=== PATIENT | male | born 1940 | race Hispanic/Latino ===

== ENCOUNTER 2017-04-12 20:45 | Inpatient (IN) | payer MEDICARE, OTHER ==
--- NOTE | 2017-04-12 21:29 | C.PDOC ---
History Of Present Illness 76 year old male presents to the ED with complaints of a sinus infection with thick nasal drip. Patient states he was seen by doctor yesterday and began amoxicillin treatment upon taking the medication began to feel palpitations today. He notes a history of atrial fibrillation but is well controlled, Gilbert 's Disease, and has noticed swelling in both legs. He had elevated blood pressure which he took his blood pressure medication but with no relief. Patient denies taking any over the counter sinus of cold medications except for Tylenol, denies any shortness of breath, vomiting, or any other complaints at this time. Time Seen by Provider: 04/12/17 21:13 Chief Complaint (Nursing): High Blood Pressure Past Medical History Vital Signs: Last Vital Signs Temp 98.2 F 04/12/17 21:02 Pulse 112 H 04/12/17 22:40 Resp 16 04/12/17 22:40 BP 153/101 H 04/12/17 22:40 Pulse Ox 98 04/12/17 22:40 - Medical History PMH: Anxiety, Atrial Fibrillation, Cardia Arrhythmia, CHF, HTN, Hypercholesterolemia Denies: Chronic Kidney Disease Surgical History: Cholecystectomy, Coronary Stent - [facility] Procedures CONTINUOUS INVASIVE MECHANICAL VENTILATION <96 CONSEC HRS (11/05/14) INSERT ENDOTRACHEAL TUBE (11/05/14) Family History: States: No Known Family Hx - Social History Hx Tobacco Use: No Hx Alcohol Use: No Hx Substance Use: No - Immunization History Hx Tetanus Toxoid Vaccination: Yes Hx Influenza Vaccination: Yes Hx Pneumococcal Vaccination: Yes Physical Exam - Physical Exam Appears: Non-toxic, No Acute Distress Skin: Warm, Dry, Jaundice (Patient has history of Gilbert's Disease ) Head: Atraumatic Eye(s): bilateral: Normal Inspection Ear(s): Bilateral: Normal Oral Mucosa: Moist Throat: Normal Neck: Supple Chest: Symmetrical, No Deformity Cardiovascular: Rhythm Irregular (heart rate 145 bpm, tachycardic ), Other ( Atrial fibrilations rapid ventricular spots in EKG ) Respiratory: Rales (bilateral course rales ), No Rhonchi, No Stridor, No Wheezing Gastrointestinal/Abdominal: Soft, No Tenderness, No Distention, No Guarding, No Rebound Extremity: Normal ROM, No Tenderness, Other (2+ pitting edema in both legs ) Neurological/Psych: Oriented x3 ED Course And Treatment - Laboratory Results Result Diagrams: 04/12/17 21:30 04/12/17 21:30 Lab Interpretation: Abnormal (BNP 1010, Mild anemia, glucose 216) ECG: Interpreted By Me ECG Rhythm: Atrial Fibrillation (with rapid ventricular response and Qwaves V1- 2 c/w septal infarct.) ECG Interpretation: Abnormal O2 Sat by Pulse Oximetry: 97 Pulse Ox Interpretation: Normal - Radiology CXR: Interpreted by Me CXR Interpretation: Yes: Cardiomegaly, Other (vascular congestion) Reevaluation Time: 22:33 Reassessment Condition: Improved (after Cardizem 10 mg IV. HR 90, BP 133/75.) - Physician Consult Information Time Consulting Physician Contacted: 22:36 Physician Contacted: Agustin Huitron Disposition - Disposition Disposition: HOSPITALIZED Disposition Time: 22:50 Condition: IMPROVED - POA Present On Arrival: None - Clinical Impression Clinical Impression: Atrial fibrillation with rapid ventricular response, CHF (congestive heart failure) - Scribe Statement The provider has reviewed the documentation as recorded by the Scribmariel Edwards All medical record entries made by the Scribe were at my direction and personally dictated by me. I have reviewed the chart and agree that the record accurately reflects my personal performance of the history, physical exam, medical decision making, and the department course for this patient. I have also personally directed, reviewed, and agree with the discharge instructions and disposition.
[2017-04-12 21:40] LABS: BASO # 0.1 K/uL (0.0-0.2); EOS # 0.2 K/uL (0.0-0.7); EOS % 1.5 % (0.0-4.0); HEMATOCRIT 33.1 % (35.0-51.0); LYMPH # 0.9 K/uL (1.0-4.3); LYMPH % 8.7 % (20.0-40.0); MEAN CELL VOLUME 62.1 fL (80.0-94.0); MEAN CORPUSCULAR HEMOGLOBIN 19.3 pg (27.0-31.0); MEAN PLATELET VOLUME 8.9 fL (7.2-11.7); MONO # 0.7 K/uL (0.0-0.8); MONO % 6.5 % (0.0-10.0); PLATELET COUNT 188 K/uL (130-400); RED CELL DISTRIBUTION WIDTH 19.1 % (11.5-14.5); WHITE BLOOD COUNT 10.5 K/uL (4.8-10.8)
[2017-04-12 21:51] LABS: CHLORIDE 99 mmol/L (98-107); POTASSIUM 3.9 mmol/L (3.6-5.2); SODIUM 139 mmol/L (132-148)
[2017-04-12 21:53] LABS: BILIRUBIN,TOTAL 3.4 mg/dL (0.2-1.3); GFR AFRICAN-AMERICAN > 60
[2017-04-12 21:54] LABS: ALB/GLOB RATIO 1.3 (1.0-2.1); ALKALINE PHOSPHATASE 67 U/L (38-126); ALT/SGPT 16 U/L (21-72); AST/SGOT 21 U/L (17-59); BLOOD UREA NITROGEN 16 mg/dL (9-20); CALCIUM 8.8 mg/dl (8.6-10.4); CARBON DIOXIDE 26 mmol/L (22-30); GLUCOSE,RANDOM 216 mg/dL (75-110)
[2017-04-12 21:56] LABS: NEUTROPHIL 79 % (50-75); TOTAL CELLS COUNTED 100
[2017-04-13] MEDS: diltiaZEM 120 mg/24 Hours CD Cap PO SCH ×3 (00:35→17:51)
[2017-04-13 07:23] LABS: BASO # 0.1 K/uL (0.0-0.2); BASO % 0.5 % (0.0-2.0); EOS # 0.1 K/uL (0.0-0.7); EOS % 1.1 % (0.0-4.0); HEMATOCRIT 31.9 % (35.0-51.0); LYMPH # 0.7 K/uL (1.0-4.3); LYMPH % 6.8 % (20.0-40.0); MEAN CELL VOLUME 61.9 fL (80.0-94.0); MEAN CORPUSCULAR HEMOGLOBIN 19.3 pg (27.0-31.0); MEAN CORPUSCULAR HGB CONC 31.2 g/dL (33.0-37.0); MEAN PLATELET VOLUME 8.9 fL (7.2-11.7); MONO # 0.8 K/uL (0.0-0.8); MONO % 7.6 % (0.0-10.0); PLATELET COUNT 174 K/uL (130-400); RED CELL DISTRIBUTION WIDTH 19.1 % (11.5-14.5); WHITE BLOOD COUNT 10.6 K/uL (4.8-10.8)
--- NOTE | 2017-04-13 07:25 | RAD ---
PROCEDURE: CHEST RADIOGRAPH, 1 VIEW HISTORY: Palpitations. COMPARISON: None available. FINDINGS: LUNGS: Mild venous congestion. Right hilar prominence. Patchy left basilar airspace opacity. Question trace left pleural effusion. Left midlung linear atelectasis. PLEURA: As above. CARDIOVASCULAR: Cardiomegaly. Calcification at the aortic knob. Tortuous aorta. OSSEOUS STRUCTURES: No significant abnormalities. VISUALIZED UPPER ABDOMEN: Normal. OTHER FINDINGS: None. IMPRESSION: Mild venous congestion. Right hilar prominence. Patchy left basilar airspace opacity. Question trace left pleural effusion. Left midlung linear atelectasis.
[2017-04-13 07:50] LABS: CHLORIDE 99 mmol/L (98-107); POTASSIUM 3.9 mmol/L (3.6-5.2); SODIUM 139 mmol/L (132-148)
[2017-04-13 07:52] LABS: AST/SGOT 18 U/L (17-59); BILIRUBIN,TOTAL 3.3 mg/dL (0.2-1.3); CARBON DIOXIDE 27 mmol/L (22-30); CHOLESTEROL 94 mg/dL (0-199); GFR AFRICAN-AMERICAN > 60
[2017-04-13 07:53] LABS: ALB/GLOB RATIO 1.3 (1.0-2.1); ALKALINE PHOSPHATASE 61 U/L (38-126); ALT/SGPT 19 U/L (21-72); BLOOD UREA NITROGEN 18 mg/dL (9-20); CALCIUM 8.8 mg/dl (8.6-10.4); GLUCOSE,RANDOM 137 mg/dL (75-110); TOTAL PROTEIN 7.7 g/dL (6.3-8.3)
[2017-04-13 07:54] LABS: IRON 41 ug/dL (49-181)
[2017-04-13] MEDS: (Novolin R) Insulin Human Regular 100 units/ml vial SC SCH ×4 (08:00→22:50)
[2017-04-13 08:33] LABS: BASOPHIL 1 % (0-2); EOSINOPHIL 2 % (0-4); NEUTROPHIL 85 % (50-75); TOTAL CELLS COUNTED 100
[2017-04-13 08:35] LABS: LARGE PLATELETS PRESENT
[2017-04-13 09:03] LABS: FOLATE > 20.0 ng/mL
[2017-04-13] MEDS: GlipiZIDE 2.5 mg SR Tab PO SCH (09:56)
[2017-04-13] MEDS: Pantoprazole 40 mg EC Tab PO SCH (09:56)
--- NOTE | 2017-04-13 11:33 | CP.PCM.PN ---
Subjective - Date & Time of Evaluation Date of Evaluation: 04/13/17 Time of Evaluation: 11:00 - Subjective Subjective: H&P dictated Objective - Vital Signs/Intake and Output Vital Signs (last 24 hours): Temp Pulse Resp BP Pulse Ox 99.2 F 75 20 150/72 96 04/13/17 08:05 04/13/17 08:05 04/13/17 08:05 04/13/17 09:59 04/13/17 08:05 Intake and Output: 04/13/17 04/13/17 06:59 18:59 Intake Total 240 Output Total 250 Balance -10 - Medications Medications: Current Medications Apixaban (Eliquis) 5 mg PO BID [facility] Last Admin: 04/13/17 09:56 Dose: 5 mg Carvedilol (Coreg) 25 mg PO BID [facility] Last Admin: 04/13/17 09:59 Dose: 25 mg Diltiazem HCl (Cardizem Cd) 120 mg PO BID [facility] Last Admin: 04/13/17 09:56 Dose: 120 mg Folic Acid (Folic Acid) 1 mg PO DAILY [facility] Last Admin: 04/13/17 09:56 Dose: 1 mg Glipizide (Glucotrol Xl) 2.5 mg PO DAILY [facility] Last Admin: 04/13/17 09:56 Dose: 2.5 mg Insulin Human Regular (Novolin R) 0 unit SC [facility] PRN Reason: Protocol Last Admin: 04/13/17 08:00 Dose: 1 unit Pantoprazole Sodium (Protonix Ec Tab) 40 mg PO DAILY [facility] Last Admin: 04/13/17 09:56 Dose: 40 mg Rosuvastatin Calcium (Crestor) 20 mg PO [facility] - Labs Labs: 04/13/17 07:00 04/13/17 07:00
[2017-04-13] MEDS ORDERED: Ergocalciferol 50,000 Intl Units Cap PO SCH (12:15)
[2017-04-13] MEDS ORDERED: Digoxin 500 mcg/2ml (0.5 mg/2ml) Inj IVP ONE ×2 (15:58→17:45)
--- NOTE | 2017-04-13 16:38 | CT ---
CT chest History: Infiltrate. Comparison: X-ray dated 04/12/2017 Technique: Multiple contiguous axial images were performed through the chest without the use of intravenous contrast. Subsequently, sagittal and coronal reformatted images were obtained. This CT exam was performed using one or more of the following dose reduction techniques: Automated exposure control, adjustment of the mA and/or kV according to patient size, and/or use of iterative reconstruction technique. Findings: 9 millimeter pulmonary nodule seen on series 3, image 53 within the posterior aspect of the right upper lobe along the fissure. Scattered emphysematous changes. Mild atelectasis and or consolidation seen within the posterior and posterior medial aspect of the right lower lobe. Minimal atelectasis within the left lower lobe. Minimal atelectasis within the posterior aspect of the left upper lobe at its mid to inferior aspect. Trachea thru central airways are patent. No significant axillary adenopathy. Heterogeneity of the thyroid. Prominent calcification and plaque within the aorta. Prominence of the ascending aorta measuring up to 4.9 centimeters. Descending aorta measures 3.5 centimeters. Aorta at the aortic arch measures 3.1 centimeters. A few shotty pre-vascular lymph nodes measuring 1.7 centimeters. Prominent right paratracheal lymph node measures 2.0 x 1.8 centimeters. Trace pericardial effusion. Extensive coronary calcifications and or coronary stents. Mild cardiomegaly. Prominent liver with diffuse fatty infiltration as well as scattered calcified granulomatous changes. Prior cholecystectomy. Nodularity of the adrenals. Fatty atrophy of the pancreas. Small hiatal hernia. Perinephric fat stranding. Degenerative changes in the spine with paravertebral osteophytes. Impression: 1. 9 millimeter pulmonary nodule seen on series 3, image 53 within the posterior aspect of the right upper lobe along the fissure. Scattered emphysematous changes. Mild atelectasis and or consolidation seen within the posterior and posterior medial aspect of the right lower lobe. Minimal atelectasis within the left lower lobe. Minimal atelectasis within the posterior aspect of the left upper lobe at its mid to inferior aspect. 2. Prominence of the ascending aorta measuring up to 4.9 centimeters. Descending aorta measures 3.5 centimeters. Aorta at the aortic arch measures 3.1 centimeters. 3. A few shotty pre-vascular lymph nodes measuring 1.7 centimeters. Prominent right paratracheal lymph node measures 2.0 x 1.8 centimeters. 4. Trace pericardial effusion. Extensive coronary calcifications and or coronary stents. Mild cardiomegaly. 5. Prominent liver with diffuse fatty infiltration as well as scattered calcified granulomatous changes. 6. Fatty atrophy of the pancreas. Additional findings as above. 3-[address] follow-up would be helpful to better followup the pulmonary nodule.
[2017-04-13 17:56] VITALS: PULSE 123
--- NOTE | 2017-04-13 18:32 | CON ---
DATE: 04/13/2017 REASON FOR CONSULTATION: Atrial fibrillation. HISTORY OF PRESENT ILLNESS: The patient is a 76-year-old male who has a history of chronic atrial fibrillation on Eliquis for the past 3 years. The patient has coronary artery disease, underw ent 2 stents 14 years ago and has been stable since then, required no cardiac catheterization or inte rvention for the past 14 years. The patient was experiencing sinus infection as well as postnasal dr ip and was placed on amoxicillin. The patient stated that after taking amoxicillin he felt palpitati ons and weakness and was driven by his son to the Emergency Room. The patient [place] about [place] from the hospital. The patient denies any retrosternal chest pain, denies any dizziness or sy ncope. The patient was found to have rapid atrial fibrillation. SOCIAL HISTORY: The patient is a nonsmoker, nondrinker. MEDICATIONS: Cardizem 120 mg twice a day, Coreg 25 mg twice a day, Crestor 20 mg once a day, Eliquis 5 mg b.i.d., glipizide 2.5 mg once a day, Protonix 40 mg p.o. once a day, Lasix 40 mg intravenously. REVIEW OF SYSTEMS: No nausea or vomiting. No fever or chills. No dizziness or syncope. PHYSICAL EXAMINATION: GENERAL: The patient is an elderly male who does not appear to be in any distress. VITAL SIGNS: Blood pressure 153/94, heart rate 91, temperature 99.2, respirations 20. HEENT: Pale conjunctivae. CHEST: Clear. HEART: S1, S2 regular. Grade III/ ejection systolic murmur over left sternal border. ABDOMEN: Soft. EXTREMITIES: 1+ pitting edema. LABORATORIES: Hemoglobin and hematocrit 9.9 and 31.9. White count and platelet count are within nor mal limits. Today's SMA-7 is within normal limits except for glucose of 137. Total of 3 troponins a re negative. ProBNP is elevated at 1010. Lipid profile is within normal limits except for HDL of 26 . Chest x-ray revealed borderline cardiomegaly and prominent bronchovascular markings. ASSESSMENT: 1. Rapid atrial fibrillation. 2. Rule out underlying systolic left ventricular dysfunction. 3. History of coronary artery disease status post coronary artery stenting some 14 years ago. A tot al of 3 sets of troponins this admission are negative. EKG is consistent with atrial fibrillation wi th a rapid ventricular response. 4. Uncontrolled diabetes mellitus. RECOMMENDATIONS: Continue Eliquis 5 mg twice a day, Lasix at 40 mg intravenously once a day, Cardize m-CD at 120 mg twice a day, Coreg 25 mg twice a day, Eliquis 5 mg twice a day. I will administer dig oxin 0.25 mg intravenously as initial dose followed by 0.25 mg orally daily. Obtain an echocardiogra m. TSH level and I will follow up chest CT scan that was performed today. Des Culp MD cc: [id number] TT: 04/13/2017 18:32:33 Confirmation # [id number] Dictation # [id number] mn
--- NOTE | 2017-04-13 19:26 | HP ---
CHIEF COMPLAINT: Palpitation, which got worse today and his blood pressure was also high when he checked it at home. 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 He started having sinus infection for which he was evaluated by ENT. ENT gave him Augmentin; he has been taking for the past 3 days. He suddenly started having palpitations. His blood pressure was high and not able to breathe, which made him come to the Emergency Room. He denied any headache, dizziness. Denied any chest pain associated with it. Denied any nausea, vomiting, abdominal pain, diarrhea or constipation. Denied any urinary complaints. Denied any leg pains or leg cramps. Denied any other neurologic symptoms. PAST MEDICAL HISTORY: As described, atrial fibrillation, hypertension, diabetes mellitus, hyperlipidemia. PAST SURGICAL HISTORY: Multiple stent placements 13 years ago, left carotid endarterectomy about 8 years ago, cholecystectomy. FAMILY HISTORY: Nothing contributory to the present illness. 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 SOCIAL HISTORY: Denies smoking, alcohol or drug abuse. ALLERGIES: No known drug allergies. MEDICATIONS: Include Eliquis 5 mg b.i.d., atorvastatin 40 mg daily, Coreg 25 mg p.o. b.i.d., Dexilant 60 mg daily, Cardizem 120 mg p.o. b.i.d., folic acid 1 mg p.o. daily, glipizide 2.5 mg p.o. daily, vitamin D 2000 units daily, Benicar 20 mg p.o. daily, multivitamin, Xanax 0.25 mg p.o. as needed, spironolactone 25 mg p.o. daily. REVIEW OF SYSTEMS: As described in history of present illness. All other systems reviewed and were found to be negative. PHYSICAL EXAMINATION: GENERAL: Elderly male lying in bed in no acute distress. VITAL SIGNS: Blood pressure on admission was 163/107, pulse was 137, decreased to 133/61, pulse 98, respiration 12, temperature 98.2 degrees Fahrenheit, O2 sats 97% on room air. HEENT: Pupils equal, round, reacting to light and accommodation. Extraocular muscles intact. No icterus, no pallor. No oral thrush. Pharyngeal congestion present. NECK: Supple. No JVD. LUNGS: Bilateral vesicular breath sounds. Bilateral basal crackles heard. CARDIOVASCULAR: S1, S2 present. Irregularly, irregular. Systolic murmur heard. ABDOMEN: Soft, nontender. Bowel sounds present. No guarding, no rigidity, no rebound tenderness noted. CENTRAL NERVOUS SYSTEM: Alert, awake, oriented x 3. No focal deficits noted. EXTREMITIES: 1+ edema. Palpable peripheral pulses. LABORATORY DATA: Labs done from ED, WBC 10.5, hemoglobin 10.3, hematocrit 32.1 , platelets 188. Sodium 139, potassium 3.9, chloride 99, bicarbonate 26, BUN 16 , creatinine 0.9, glucose 216, calcium 8.8, total bilirubin 3.4, AST 21, ALT 16 , alkaline phosphatase 67, troponin less than 0.0120, proBNP 1010. Total protein 8, albumin 4.5, globulin 3.5. EKG consistent with atrial fibrillation with rapid ventricular rate. Chest x-ray consistent with mild venous congestion , right hilar prominence, patchy left basilar airspace opacity, question trace pleural effusion, left mid lung linear atelectasis. ASSESSMENT AND PLAN: Elderly male with history of coronary artery disease, atrial fibrillation, CHF, status post stent placement, hypertension, hyperlipidemia, diabetes mellitus, on long-term anticoagulation, came in with palpitations. The patient was found to be having AFib with rapid ventricular rate, which the patient attributes to using Augmentin and the patient is being admitted for further management. After receiving Cardizem in the ED, the patient's heart rate improved. 1. Atrial fibrillation with rapid ventricular rate. 2. Coronary artery disease. 3. Congestive heart failure exacerbation. 4. Uncontrolled hypertension. 5. Diabetes mellitus. 6. Hyperlipidemia. PLAN: The patient is being admitted to telemetry. We will do serial cardiac enzymes, serial EKGs. We will check echocardiogram. We will obtain cardiology consult with Dr. Culp. The patient's heart rate controlled with 1 dose of Cardizem. We will resume all his home medications. We will hold Augmentin. We will get CT scan of the chest for abnormal chest x-ray to rule out any infiltrate. Continue with Eliquis. We will do Accu-Chek q.a.c. and at bedtime. Give Lasix 40 mg daily and will continue with Lipitor 40 mg p.o. at bedtime. We will add further recommendation as his clinical course progresses. Agustin Huitron MD cc: [id number] TT: 04/13/2017 19:25:43 fe [email or web address]
[2017-04-14 01:51] VITALS: RESP 20
[2017-04-14] MEDS: diltiaZEM 120 mg/24 Hours CD Cap PO SCH (06:25)
[2017-04-14 08:08] VITALS: TEMP 99.6; O2SAT 94
[2017-04-14] MEDS: (Novolin R) Insulin Human Regular 100 units/ml vial SC SCH ×2 (08:26→11:56)
[2017-04-14] MEDS: Pantoprazole 40 mg EC Tab PO SCH (10:39)
[2017-04-14] MEDS: GlipiZIDE 2.5 mg SR Tab PO SCH (10:39)
--- NOTE | 2017-04-14 10:44 | CP.PCM.PN ---
Subjective - Date & Time of Evaluation Date of Evaluation: 04/14/17 Time of Evaluation: 11:00 - Subjective Subjective: Discharge summary dictated #[id number] Objective - Vital Signs/Intake and Output Vital Signs (last 24 hours): Temp Pulse Resp BP Pulse Ox 99.6 F 122 H 20 174/98 H 94 L 04/14/17 07:15 04/14/17 07:15 04/14/17 07:15 04/14/17 10:39 04/14/17 07:15 Intake and Output: 04/14/17 04/14/17 06:59 18:59 Intake Total 370 Output Total 700 Balance -330 - Medications Medications: Current Medications Apixaban (Eliquis) 5 mg PO BID [facility] Last Admin: 04/14/17 10:39 Dose: 5 mg Carvedilol (Coreg) 25 mg PO BID [facility] Last Admin: 04/14/17 10:39 Dose: 25 mg Diltiazem HCl (Cardizem Cd) 120 mg PO BID [facility] Last Admin: 04/14/17 06:25 Dose: 120 mg Ergocalciferol (Drisdol 50,000 Intl Units Cap) 1 cap PO QWK [facility] Last Admin: 04/13/17 12:35 Dose: 1 cap Folic Acid (Folic Acid) 1 mg PO DAILY [facility] Last Admin: 04/14/17 10:39 Dose: 1 mg Furosemide (Lasix) 40 mg IVP DAILY [facility] Last Admin: 04/14/17 10:39 Dose: 40 mg Glipizide (Glucotrol Xl) 2.5 mg PO DAILY [facility] Last Admin: 04/14/17 10:39 Dose: 2.5 mg Insulin Human Regular (Novolin R) [address] [facility] PRN Reason: Protocol Last Admin: 04/14/17 08:26 Dose: Not Given Pantoprazole Sodium (Protonix Ec Tab) 40 mg PO DAILY [facility] Last Admin: 04/14/17 10:39 Dose: 40 mg Rosuvastatin Calcium (Crestor) 20 mg PO HS [facility] Last Admin: 04/13/17 21:15 Dose: 20 mg - Labs Labs: 04/13/17 07:00 04/13/17 07:00
[2017-04-14 11:41] LABS: RBC URINE 6 /hpf (0-3); URINE BACTERIA RARE (<OCC); URINE BILIRUBIN NEGATIVE (NEGATIVE); URINE BLOOD 1+ (NEGATIVE); URINE COLOR Yellow (YELLOW); URINE GLUCOSE (UA) NORMAL (Normal); URINE KETONE NEGATIVE (NEGATIVE); URINE LEUKOCYTE ESTERASE NEG Leu/uL (Negative); URINE PROTEIN 2+ mg/dL (NEGATIVE); URINE UROBILINOGEN NORMAL mg/dL (0.2-1.0); WBC URINE < 1 /hpf (0-5)
[2017-04-14 11:46] LABS: LYMPH # 0.9 K/uL (1.0-4.3); MEAN CELL VOLUME 61.5 fL (80.0-94.0); MONO # 0.8 K/uL (0.0-0.8)
[2017-04-14 11:52] LABS: BASO # 0.1 K/uL (0.0-0.2); BASO % 0.9 % (0.0-2.0); EOS % 0.5 % (0.0-4.0); HEMATOCRIT 33.8 % (35.0-51.0); LYMPH % 12.8 % (20.0-40.0); MEAN CORPUSCULAR HEMOGLOBIN 19.8 pg (27.0-31.0); MEAN CORPUSCULAR HGB CONC 32.2 g/dL (33.0-37.0); NRBC % 0.2 % (0.0-2.0); RED CELL DISTRIBUTION WIDTH 18.4 % (11.5-14.5)
[2017-04-14 11:59] LABS: CHLORIDE 96 mmol/L (98-107)
[2017-04-14 12:00] LABS: POTASSIUM 3.8 mmol/L (3.6-5.2); SODIUM 136 mmol/L (132-148)
[2017-04-14 12:02] LABS: ALB/GLOB RATIO 1.3 (1.0-2.1); BILIRUBIN,TOTAL 4.6 mg/dL (0.2-1.3); CARBON DIOXIDE 27 mmol/L (22-30); GFR AFRICAN-AMERICAN > 60
[2017-04-14 12:03] LABS: ALKALINE PHOSPHATASE 70 U/L (38-126); ALT/SGPT 14 U/L (21-72); AST/SGOT 22 U/L (17-59); GLUCOSE,RANDOM 151 mg/dL (75-110)
[2017-04-14 12:20] LABS: BLOOD UREA NITROGEN 16 mg/dL (9-20)
--- NOTE | 2017-04-14 14:09 | CARD ---
APPROVED REPORT EKG Measurement Heart [id number] <Conclusion> Atrial fibrillation with rapid ventricular response Septal infarct, age undetermined Abnormal ECG
[2017-04-14 14:35] VITALS: BP 137/72
[2017-04-14 15:08] VITALS: PULSE 77
--- NOTE | 2017-04-14 15:53 | US ---
HISTORY: abnormal lfts COMPARISON: None. TECHNIQUE: Sonographic evaluation of the abdomen. FINDINGS: LIVER: Measures 15.2 cm. Diffusely increased echogenicity of the liver parenchyma. No mass. No intrahepatic bile duct dilatation. Smooth contour. GALLBLADDER: Status post cholecystectomy COMMON BILE DUCT: Measures 5 mm. No stones. No dilatation. PANCREAS: Unremarkable as visualized. No mass. No ductal dilatation. RIGHT KIDNEY: Measures 9.2cm. Normal echogenicity. No calculus, mass, or hydronephrosis. LEFT KIDNEY: Measures 10.1cm. Normal echogenicity. No calculus, mass, or hydronephrosis. SPLEEN: Normal in size and contour. No mass. AORTA: No aneurysmal dilatation. IVC: Unremarkable. OTHER FINDINGS: None. IMPRESSION: Fatty infiltration of the liver. Status post cholecystectomy. No additional abnormality.
--- NOTE | 2017-04-15 09:26 | DS ---
DISCHARGE DIAGNOSES: Atrial fibrillation with rapid ventricular rate, status post sinus infection, used Augmentin, coronary artery disease status post stent placement, hypertension, diabetes mellitus, hyperlipidemia, hyperbilirubinemia, abnormal CT scan with pulmonary nodule. HISTORY OF PRESENT ILLNESS: The patient is a 76-year-old male with past medical history of CAD, CHF, atrial fibrillation on anticoagulation, hyperlipidemia, hypertension, diabetes mellitus, has been following up with , cardiology admitted for atrial fibrillation with rapid ventricular rate. Today, the patient is feeling better. Denies any headache, dizziness. Denies any chest pain, shortness of breath, or wheezing. Denies any nausea, vomiting, abdominal pain, diarrhea, or constipation. Denies any urinary complaints. Denies any leg pains or leg cramps, but he has been having intermittent palpitations. PHYSICAL EXAMINATION: GENERAL: Elderly male lying in bed in no acute distress. VITAL SIGNS: Blood pressure 137/72, pulse 77, respirations 18, afebrile. O2 sats 97% on room air. HEENT: Pupils are equal, round, and reacting to light and accommodation. Extraocular muscles intact. No icterus, no pallor. No oral thrush. No pharyngeal congestion. NECK: Supple. No JVD, no thyromegaly. CHEST: Moving equally bilaterally on respiration. LUNGS: Bilateral vesicular breath sounds. No wheezing, no rhonchi. CARDIOVASCULAR: S1, S2 present. Irregularly irregular, a systolic murmur heard. ABDOMEN: Soft, nontender. Bowel sounds present. No guarding, no rigidity, no rebound tenderness noted. CENTRAL NERVOUS SYSTEM: Alert, awake, oriented x 3. No focal deficits noted. EXTREMITIES: No edema. Palpable peripheral pulses. LABORATORY DATA: From this morning show WBC 7.0, hemoglobin 10.9, hematocrit 33.8, platelets 133. Sodium 136, potassium 3.8, chloride 96, bicarb 27, BUN 16 , creatinine 0.9, glucose 273, calcium 9.0, total bilirubin 4.6, AST 22, ALT 14 , alkaline phosphatase 70, total protein 8.0, albumin 4.5. UA specific gravity 1.011, protein 2+, blood 1+. Ultrasound of the abdomen consistent with fatty infiltration of the liver. CT chest consistent with 9 mm pulmonary nodule in the right upper lobe, trace pericardial effusion, prominent liver with diffuse fatty infiltration, fatty atrophy of the pancreas. HOSPITAL COURSE: The patient was admitted to the hospital for atrial fibrillation with rapid ventricular rate. The patient received Cardizem in the Emergency Department. His rate is slightly better. The patient is being admitted. The patient was restarted on his medications. The patient was given digoxin. The patient was evaluated by cardiology. 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 He knew about the lung nodule from prior tests, as per the patient and the patient's son , and they prefer going back to his primary for further workup of pulmonary nodule. Explained the need for further workup. They verbalized understanding. As the patient refused echocardiogram, and patient's heart rates are fluctuating, the patient was not cleared by cardiology for discharge, but instead the patient decided to sign AGAINST MEDICAL ADVICE. The patient was explained the need for staying in the hospital and getting the treatment. The patient understands the consequences of going home AGAINST MEDICAL ADVICE. As the patient is alert, awake, oriented x 3, and hemodynamically stable, and understands the consequences of going home AGAINST MEDICAL ADVICE, the patient was discharged home, advised to follow up with his PMD as soon as possible. CONDITION UPON DISCHARGE: The patient is alert, awake, oriented x 3, and hemodynamically stable. DISCHARGE INSTRUCTIONS: Follow up with PMD, follow up with cardiology. Needs followup with pulmonary for further workup of pulmonary nodule. Needs to be evaluated by GI for hyperbilirubinemia. DISCHARGE MEDICATIONS: Advised to continue with his home medications. DIET: Low-sodium, low-cholesterol, 1800-calorie ADA heart-healthy diet. ACTIVITY: As tolerated. Advised to return to the Emergency Department if any worsening of his symptoms. Agustin Huitron MD cc: [id number] TT: 04/15/2017 09:25:50 jn [email or web address]
== END 2017-04-14 14:30 | disposition left against medical advice (07) | DRG 292 ==
LOC: C.ER 20:45 → C.9E 22:51 → C.6T 04-13 00:20
PROVIDERS: ADMIT Emergency Medicine; ATTEND Emergency Medicine
DX: I11.0 Hypertensive heart disease with heart failure (principal); R17 Unspecified jaundice; E11.65 Type 2 diabetes mellitus with hyperglycemia; I48.2 Chronic atrial fibrillation; I50.23 Acute on chronic systolic (congestive) heart failure; I25.10 Atherosclerotic heart disease of native coronary artery without angina pectoris; Z79.01 Long term (current) use of anticoagulants; Z95.5 Presence of coronary angioplasty implant and graft; E78.5 Hyperlipidemia, unspecified; R91.1 Solitary pulmonary nodule; J01.90 Acute sinusitis, unspecified

== ENCOUNTER 2018-01-14 20:11 | Inpatient (IN) | payer MEDICARE, OTHER ==
[2018-01-14 20:12] VITALS: PULSE 123
[2018-01-14 20:22] VITALS: O2SAT 99
[2018-01-14 20:23] VITALS: BP 194/107; PULSE 146; RESP 18
[2018-01-14] MEDS ORDERED: Aspirin 325 mg EC Tablets PO STA (20:23)
--- NOTE | 2018-01-14 20:23 | C.PDOC ---
History Of Present Illness Patient developed palpitations and chest pain about 30-40 min [employer]. Also feels bloated. has history of atrial fibrillation. Feels his heart racing . dull aching pressure, 6/10. speaking in complete sentences. Time Seen by Provider: 01/14/18 20:19 Chief Complaint (Nursing): Chest Pain History Per: Patient History/Exam Limitations: no limitations Onset/Duration Of Symptoms: Mins (40), Sudden Onset Current Symptoms Are (Timing): Still Present Context: Other Severity: Severe Pain Scale Rating Of: 6 Quality: Dull, Tightness, Pressure Associated Symptoms: Dyspnea. denies: Nausea Modifying Factors: None Alleviating Factors: None Recent travel outside of the [place]: No Additional History Per: Patient Past Medical History Reviewed: Historical Data, Nursing Documentation, Vital Signs Vital Signs: Last Vital Signs Temp Pulse 146 H 01/14/18 20:23 Resp 18 01/14/18 20:17 BP 194/107 H 01/14/18 20:23 Pulse Ox 99 01/14/18 20:54 - Medical History PMH: Anxiety, Atrial Fibrillation, Cardia Arrhythmia, CHF, HTN, Hypercholesterolemia Denies: Chronic Kidney Disease Surgical History: Cholecystectomy, Coronary Stent - [facility] CONTINUOUS INVASIVE MECHANICAL VENTILATION <96 CONSEC HRS (11/05/14) INSERT ENDOTRACHEAL TUBE (11/05/14) Family History: States: No Known Family Hx - Social History Hx Tobacco Use: No Hx Alcohol Use: No Hx Substance Use: No - Immunization History Hx Tetanus Toxoid Vaccination: Yes Hx Influenza Vaccination: Yes Hx Pneumococcal Vaccination: Yes Review Of Systems Constitutional: Negative for: Fever, Chills Eyes: Negative for: Vision Change ENT: Negative for: Throat Pain Cardiovascular: Positive for: Chest Pain, Palpitations Respiratory: Negative for: Shortness of Breath Gastrointestinal: Negative for: Nausea, Vomiting, Abdominal Pain Genitourinary: Negative for: Dysuria Musculoskeletal: Negative for: Back Pain Skin: Negative for: Rash, Lesions Neurological: Negative for: Weakness Psych: Positive for: Anxiety Physical Exam - Physical Exam Appears: In Acute Distress Skin: Warm, Dry Head: Normacephalic Eye(s): bilateral: Normal Inspection Oral Mucosa: Dry Neck: Trachea Midline, Supple Chest: Symmetrical Cardiovascular: Rhythm Irregular (tachy) Respiratory: No Rales, Rhonchi, No Wheezing Gastrointestinal/Abdominal: Soft, No Tenderness, Distention, No Guarding, No Rebound Back: No CVA Tenderness Extremity: Normal ROM, Pedal Edema (trace) Extremity: Bilateral: Atraumatic, Normal ROM Pulses: Left Dorsalis Pedis: Normal, Right Dorsalis Pedis: Normal Neurological/Psych: Oriented x3, Normal Speech, Normal Cognition Gait: Steady ED Course And Treatment - Laboratory Results Result Diagrams: 01/14/18 20:28 02 20:28 ECG: Interpreted By Me, Viewed By Me ECG Rhythm: Atrial Fibrillation (134), Nonspecific Changes O2 Sat by Pulse Oximetry: 99 Pulse Ox Interpretation: Normal - Radiology CXR: Interpreted by Me, Viewed By Me CXR Interpretation: Yes: Cardiomegaly. No: Infiltrates, Fracture Progress Note: 8:43 Pt feels better. cp free. HR decreased to 87. afib Critical Care Time - Critical Care Note Total Time (in mins): 30 Documented critical care: time excludes all time spent performing seperately billable procedures. Disposition Discussed With Dr.: Antonio Madison Comment: accepted the pt on his service and took over the care at 9:11 PM Doctor Will See Patient In The: Hospital Counseled Patient/Family Regarding: Studies Performed, Diagnosis - Disposition Referrals: Non [facility] Provider, [Primary Care Provider] - Disposition: HOSPITALIZED Disposition Time: 20:21 Condition: GUARDED Forms: [facility] ([place]) - POA Present On Arrival: Poor Glycemic Control - Clinical Impression Clinical Impression: Chest pain, Atrial fibrillation Decision To Admit - Pt Status Changed To: Hospital Disposition Of: Inpatient - Admit Certification Admit to Inpatient:: After my assessment, the patient will require hospitalization for at least two midnights. This is because of the severity of symptoms shown, intensity of services needed, and/or the medical risk in this patient being treated as an outpatient. - InPatient: Physician Admission Certification: I certify that this patient requires 2 or more midnights of care for the following reason:: After my assessment, the patient will require hospitalization for at least two midnights. This is because of the severity of symptoms shown, intensity of services needed, and/or the medical risk in this patient being treated as an outpatient. - . Bed Request Type: Telemetry Admitting Physician: Antonio Madison Patient Diagnosis: Chest pain, Atrial fibrillation
[2018-01-14 20:44] LABS: INR 1.6; PROTHROMBIN TIME 18.5 SECONDS (9.7-12.2)
[2018-01-14 20:49] LABS: ALB/GLOB RATIO 1.2 (1.0-2.1); ALBUMIN 4.7 g/dL (3.5-5.0); ALT/SGPT 17 U/L (21-72); AST/SGOT 23 U/L (17-59); BLOOD UREA NITROGEN 15 mg/dL (9-20); CALCIUM 9.7 mg/dl (8.6-10.4); GFR AFRICAN-AMERICAN > 60; GFR NON-AFRICAN AMERICAN > 60
[2018-01-14 20:52] LABS: BASO % 0.4 % (0.0-2.0); EOS # 0.1 K/uL (0.0-0.7); EOS % 1.1 % (0.0-4.0); HEMOGLOBIN 11.3 g/dL (12.0-18.0); LYMPH # 1.1 K/uL (1.0-4.3); MEAN CELL VOLUME 61.7 fL (80.0-94.0); MEAN CORPUSCULAR HEMOGLOBIN 19.8 pg (27.0-31.0); MEAN CORPUSCULAR HGB CONC 32.1 g/dL (33.0-37.0); MEAN PLATELET VOLUME 9.1 fL (7.2-11.7); MONO # 0.6 K/uL (0.0-0.8); MONO % 6.5 % (0.0-10.0); NEUT # 7.5 K/uL (1.8-7.0); NRBC % 0.2 % (0.0-2.0); RBC 5.71 Mil/uL (4.40-5.90); RED CELL DISTRIBUTION WIDTH 18.1 % (11.5-14.5); WHITE BLOOD COUNT 9.4 K/uL (4.8-10.8)
[2018-01-14 20:59] LABS: B-TYPE NATRIURETIC PEPTIDE 1550 pg/mL (0-900)
[2018-01-14] MEDS ORDERED: Morphine 4 MG/ML VIAL ONE (21:16)
[2018-01-14] MEDS ORDERED: Aspirin 325 mg EC Tablets PO ONE (21:17)
[2018-01-14] MEDS ORDERED: Potassium Chloride 20 mEq/15 ml LIQ UD PO STA (22:36)
--- NOTE | 2018-01-14 23:25 | CP.PCM.HP ---
History of Present Illness - History of Present Illness History of Present Illness: he patient declines admission to the hospital and wishes to leave the Emergency Department. This action is against my medical advice. This decision was made with informed refusal. The patient was told that admission to the hospital is necessary. Explanation of the reasons why were discussed. The risks of leaving were explained to the patient and include, but are not limited to, worsening of known or currently unknown conditions, permanent disability and from undiagnosed or untreated conditions. The patient has the capacity to make this informed decision and understands my explanation of the current medical problem and risks of leaving. The patient voluntarily accepts these risks and signed an AMA form documenting our conversation. The patient was given the opportunity to ask questions and reconsider. The patient was encouraged to return to the Emergency Department at any time for further care. Past Patient History - Infectious Disease Hx of Infectious Diseases: None - Past Medical History & Family History Past Medical History?: Yes - Past Social History Smoking Status: Former Smoker - CARDIAC Hx Atrial Fibrillation: Yes Hx Cardia Arrhythmia: Yes Hx Congestive Heart Failure: Yes Hx Hypercholesterolemia: Yes Hx Hypertension: Yes - PULMONARY Hx Respiratory Disorders: Yes Hx Pulmonary Edema: Yes - NEUROLOGICAL Hx Neurological Disorder: No - HEENT Hx HEENT Problems: No - RENAL Hx Chronic Kidney Disease: No - ENDOCRINE/METABOLIC Hx Diabetes Mellitus Type 2: Yes - HEMATOLOGICAL/ONCOLOGICAL Hx Blood Disorders: No - INTEGUMENTARY Hx Dermatological Problems: No - MUSCULOSKELETAL/RHEUMATOLOGICAL Hx Falls: No - GASTROINTESTINAL Hx Gastrointestinal Disorders: Yes Hx Gastroesophageal Reflux: Yes - GENITOURINARY/GYNECOLOGICAL Hx Genitourinary Disorders: Yes Hx Prostate Problems: Yes - PSYCHIATRIC Hx Anxiety: Yes Hx Substance Use: No - SURGICAL HISTORY Hx Cholecystectomy: Yes Hx Coronary Stent: Yes - ANESTHESIA Hx Anesthesia: Yes Hx Anesthesia Reactions: No Hx Malignant Hyperthermia: No Meds Allergies/Adverse Reactions: Allergies Allergy/AdvReac Type Severity Reaction Status Date / Time No Known Allergies Allergy Verified 01/14/18 20:17 Results - Vital Signs Recent Vital Signs: Last Vital Signs Temp Pulse 146 H 01/14/18 20:23 Resp 18 01/14/18 20:17 BP 194/107 H 01/14/18 20:23 Pulse Ox 99 01/14/18 21:13 - Labs Result Diagrams: 01/14/18 20:28 01/14/18 20:28 Labs: Laboratory Results - last 24 hr 01/14/18 01/14/18 01/14/18 20:28 20:28 20:28 WBC 9.4 RBC 5.71 Hgb 11.3 L Hct 35.2 MCV 61.7 L MCH 19.8 L MCHC 32.1 L RDW 18.1 H Plt Count 185 MPV 9.1 Neut % (Auto) 80.0 H Lymph % (Auto) 12.[address] [place] % (Auto) 6.5 Eos % (Auto) 1.1 Baso % (Auto) 0.4 Neut # (Auto) 7.5 H Lymph # (Auto) 1.1 [place] # (Auto) 0.6 Eos # (Auto) 0.1 Baso # (Auto) 0.0 PT 18.5 H INR 1.6 APTT 47 H Sodium 140 Potassium 3.2 L Chloride 99 Carbon Dioxide 25 Anion Gap 19 BUN 15 Creatinine 0.9 Est GFR ( Amer) > 60 Est GFR (Non-Af Amer) > 60 Random Glucose 255 H Calcium 9.7 Total Bilirubin 4.9 H AST 23 ALT 17 L D Alkaline Phosphatase 79 Troponin I < 0.0120 NT-Pro-B Natriuret Pep 1550 H Total Protein 8.7 H Albumin 4.7 Globulin 4.0 H Albumin/Globulin Ratio 1.2
[2018-01-15] MEDS ORDERED: (Novolin R) Insulin Human Regular 100 units/ml vial SC SCH (07:30)
--- NOTE | 2018-01-15 09:10 | RAD ---
Chest x-ray single frontal view History: Chest pain. Comparison: 04/12/2017 Findings: Mild venous congestion. Elevated right hemidiaphragm. Enlarged ectatic aorta. Cardiomegaly. Calcification at the aortic knob. Degenerative changes in the spine and shoulders. Impression: Mild venous congestion. Elevated right hemidiaphragm. Enlarged ectatic aorta. Cardiomegaly. Calcification at the aortic knob.
[2018-01-15] MEDS ORDERED: diltiaZEM 120 mg/24 Hours CD Cap PO SCH ×2 (10:00)
[2018-01-15] MEDS ORDERED: GlipiZIDE 2.5 mg SR Tab PO SCH (10:00)
== END 2018-01-14 22:55 | disposition left against medical advice (07) | DRG 313 ==
LOC: C.ER 20:11 → SUPCPDRO 20:11 → C.9E 21:06
PROVIDERS: ADMIT Internal Medicine; ATTEND Internal Medicine
DX: R07.9 Chest pain, unspecified (principal); I11.0 Hypertensive heart disease with heart failure; I48.91 Unspecified atrial fibrillation; I50.9 Heart failure, unspecified; F41.9 Anxiety disorder, unspecified; E78.00 Pure hypercholesterolemia, unspecified; K21.9 Gastro-esophageal reflux disease without esophagitis; E11.9 Type 2 diabetes mellitus without complications; Z90.49 Acquired absence of other specified parts of digestive tract; Z95.5 Presence of coronary angioplasty implant and graft; Z87.891 Personal history of nicotine dependence